=== PATIENT | female | born 1990 | race Caucasian/White ===

== ENCOUNTER 2020-06-15 22:44 | Inpatient (IN) | payer OTHER ==
[~2020-06-15] VITALS: Ht 172.7 cm; Wt 73.0 kg
[2020-06-15] MEDS ORDERED: METOPROLOL TART25 MG PO (23:57)
[2020-06-15] MEDS ORDERED: BUPRENORPHIN-N1 EACH SL (23:58)
[2020-06-15] MEDS ORDERED: TYLENOL325 MG PO (23:59)
[2020-06-16 01:39] LABS: HEMOGLOBIN 11.2 gm/dl (12.3-15.3); RED BLOOD COUNT 4.47 M/UL (4.00-5.10); WHITE BLOOD COUNT 16.9 K/UL (4.5-11.0)
[2020-06-16 03:50] LABS: BUN/CREATININE RATIO 11 (0-10)
[2020-06-16 11:05] LABS: HEMOGLOBIN 10.7 gm/dl (12.3-15.3); RED BLOOD COUNT 4.39 M/UL (4.00-5.10); WHITE BLOOD COUNT 13.3 K/UL (4.5-11.0)
[2020-06-16 11:24] LABS: BUN/CREATININE RATIO 16 (0-10)
[2020-06-16 20:05] LABS: BUN/CREATININE RATIO 16 (0-10)
[2020-06-17 05:50] LABS: HEMOGLOBIN 10.5 gm/dl (12.3-15.3); RED BLOOD COUNT 4.2 M/UL (4.00-5.10); WHITE BLOOD COUNT 16.4 K/UL (4.5-11.0)
[2020-06-17 06:11] LABS: BUN/CREATININE RATIO 16 (0-10)
[2020-06-18 03:54] LABS: HEMOGLOBIN 10.1 gm/dl (12.3-15.3); RED BLOOD COUNT 4.05 M/UL (4.00-5.10)
[2020-06-18 03:58] LABS: WHITE BLOOD COUNT 21.9 K/UL (4.5-11.0)
[2020-06-18 04:18] LABS: BUN/CREATININE RATIO 18 (0-10)
[2020-06-19 03:54] LABS: HEMOGLOBIN 9.5 gm/dl (12.3-15.3); RED BLOOD COUNT 3.79 M/UL (4.00-5.10)
[2020-06-19 04:22] LABS: WHITE BLOOD COUNT 14.6 K/UL (4.5-11.0)
[2020-06-19 04:33] LABS: BUN/CREATININE RATIO 25 (0-10)
[2020-06-20 04:41] LABS: HEMOGLOBIN 8.7 gm/dl (12.3-15.3)
[2020-06-20 04:48] LABS: RED BLOOD COUNT 3.38 M/UL (4.00-5.10)
[2020-06-20 05:04] LABS: BUN/CREATININE RATIO 23 (0-10)
--- NOTE | 2020-06-20 15:00 | NUR ---
DR. CONNOR AT BEDSIDE, PTS BROTHER, PACHECO GALICIA HERE. HE STATES HE WISHES TO TRANSFER HIS DECISION MAKING RESPONSIBILITES TO HER BOYFRIEND OF 10+ YEARS, CAROLINA GRANADOS. PACHECO GALICIA STATES HE DOES NOT FEEL COMFORTABLE MAKING THOSE DECISIONS. SEE DR. CONNOR CHARTING FOR FURTHER DETAILS.
[2020-06-21 03:51] LABS: HEMOGLOBIN 8.3 gm/dl (12.3-15.3); RED BLOOD COUNT 3.31 M/UL (4.00-5.10)
[2020-06-21 03:55] LABS: WHITE BLOOD COUNT 10.1 K/UL (4.5-11.0)
[2020-06-21 04:17] LABS: BUN/CREATININE RATIO 27 (0-10)
--- NOTE | 2020-06-21 10:46 | NUR ---
06/21/2020 AT 0821, NELY FROM [facility] CALLED TO GET A PATIENT UPDATE. NELY LEFT HER NUMBER IF FAMILY OR PATIENT STATUS WERE TO CHANGE.
[2020-06-22 08:38] LABS: HEMOGLOBIN 8.5 gm/dl (12.3-15.3); RED BLOOD COUNT 3.51 M/UL (4.00-5.10); WHITE BLOOD COUNT 8.2 K/UL (4.5-11.0)
[2020-06-22 08:54] LABS: BUN/CREATININE RATIO 27 (0-10)
--- NOTE | 2020-06-22 09:31 | NUR ---
CALLED [facility] 06/22/20 AT 0930. SPOKE WITH NELY WHO HAS BEEN FOLLOWING THE CASE. INFORMED NELY THAT FAMILY IS THINKING OF WITHDRAWAL OF CARE AND WOULD MAKE A DECISION IN A HOUR. NELY SAID SHE WOULD MAKE HER PHONE CALLS AND CALL ME BACK WITH MORE INFORMATION.
--- NOTE | 2020-06-22 09:40 | NUR ---
SPOKE WITH REAL FROM [facility] AT 0938 06/21/20. SHE OBTAINED INFORMATION AND STATED SHE HAD TO MAKE A PHONE CALLED AND WOULD CALL ME BACK WITH MORE INFORMATION. SPOKE WITH [place] FROM [facility] AT 0939 06/21/20. NELY WAS MAKING SURE I SPOKE WITH REAL AND THAT REAL WILL BE IN TOUCH WITH ME AGAIN.
--- NOTE | 2020-06-22 09:42 | NUR ---
Spoke to NICOLE Lorenz re: need for PICC line. MD in discussion with family about withdrawal of care.
--- NOTE | 2020-06-22 10:17 | NUR ---
REAL JOHNS CALLED BACK [phone] 06/22/20. REAL JOHNS STATED SHE WILL BE COMING DOWN FROM [facility] TO TALK WITH THE FAMILY. FAMILY SUPPORT WITH [facility] WILL ALSO BE COMING DOWN WELL TO SPEAK WITH THE FAMILY.
--- NOTE | 2020-06-22 12:06 | NUR ---
FAMILY SUPPORT PERSONAL FROM [facility] ARRIVED AT [phone] 06/22/20.
--- NOTE | 2020-06-22 12:19 | NUR ---
MORE PERSONAL FROM [facility] HAVE ARRIVED [phone] 06/22/20
--- NOTE | 2020-06-22 13:33 | NUR ---
family support nurses with [facility] took family back to have a talk about care and how he wants to prodece.
--- NOTE | 2020-06-22 13:59 | NUR ---
family support nurses spoke with family. boyfriend agreed he wanted to donate organs. zbigniew traore is the organ coorinate for [facility] and will be arrving shortly. 1400, 06/22/20
--- NOTE | 2020-06-22 16:27 | NUR ---
REAL FROM [facility] CALLED AND SAID SHE WAS ON HER WAY TO THE HOSPITAL. REAL IS THE ORGAN COORDINATOR. 1533 06/22/20
[2020-06-23 04:56] LABS: HEMOGLOBIN 7.9 gm/dl (12.3-15.3); WHITE BLOOD COUNT 6.3 K/UL (4.5-11.0)
[2020-06-23 04:57] LABS: RED BLOOD COUNT 3.14 M/UL (4.00-5.10)
[2020-06-23 05:16] LABS: BUN/CREATININE RATIO 25 (0-10)
[2020-06-23 17:11] LABS: HIV 1 AB Negative (Negative); HIV 1 RNA QUALITATIVE Negative (Negative); HIV 2 AB Negative (Negative); HIV SCREEN 4TH GENERATION WRFX Reactive (Non Reactive); INTERPRETATION: Negative (.)
--- NOTE | 2020-06-28 07:08 | NUR ---
PATIENTS BREATHING HAS BECOME MORE LABORED. CALLED CAROL[place] GRANADOS [phone] TWICE AT 0645. UNABLE TO REACH HIM AT THAT TIME.
== END 2020-06-29 06:00 | disposition expired | DRG 917 ==
LOC: CCU 22:44 → MED SURG 4 23:41 → CCU 23:45 → MED SURG 4 06-25 15:16
PROVIDERS: Family Medicine; Internal Medicine Infectious Disease; Internal Medicine Pulmonary Disease; ADMIT Internal Medicine
PROC: 0BH17EZ Insertion of Endotracheal Airway into Trachea, Via Natural or Artificial Opening (ICD-10-PCS; principal; 2020-06-16)
PROC: 5A1955Z Respiratory Ventilation, Greater than 96 Consecutive Hours (ICD-10-PCS; 2020-06-16)
DX: T65.91XA Toxic effect of unspecified substance, accidental (unintentional), initial encounter (principal); I21.A1 Myocardial infarction type 2; J69.0 Pneumonitis due to inhalation of food and vomit; J96.01 Acute respiratory failure with hypoxia; J15.0 Pneumonia due to Klebsiella pneumoniae; R65.20 Severe sepsis without septic shock; A41.02 Sepsis due to Methicillin resistant Staphylococcus aureus; E87.2 Acidosis; G93.1 Anoxic brain damage, not elsewhere classified; F11.20 Opioid dependence, uncomplicated; I42.9 Cardiomyopathy, unspecified; B20 Human immunodeficiency virus [HIV] disease; I44.2 Atrioventricular block, complete; Z66 Do not resuscitate; Z51.5 Encounter for palliative care; Z20.822 Contact with and (suspected) exposure to COVID-19; I27.20 Pulmonary hypertension, unspecified; R40.2430 Glasgow coma scale score 3-8, unspecified time; D64.9 Anemia, unspecified; D72.829 Elevated white blood cell count, unspecified; L89.326 Pressure-induced deep tissue damage of left buttock; I46.9 Cardiac arrest, cause unspecified; E11.9 Type 2 diabetes mellitus without complications; B19.20 Unspecified viral hepatitis C without hepatic coma; Z86.14 Personal history of Methicillin resistant Staphylococcus aureus infection; R94.31 Abnormal electrocardiogram [ECG] [EKG]; G40.909 Epilepsy, unspecified, not intractable, without status epilepticus; F19.10 Other psychoactive substance abuse, uncomplicated; Z95.2 Presence of prosthetic heart valve; Z83.3 Family history of diabetes mellitus; Z82.49 Family history of ischemic heart disease and other diseases of the circulatory system
CPT/HCPCS: 36415; 36600; 70450; 71045; 80048; 80053; 80202; 80307; 81001; 82550; 82553; 82803; 82962; 83605; 83615; 83690; 83735; 83880; 84100; 84484; 85025; 85027; 85610; 86140; 87040; 87070; 87077; 87186; 87205; 87389; 87635; 93005; 93308; 94002; 94003; 94760; 95819; C9113; J1335; J1650; J1940; J1953; J2060; J2250; J2270; J2543; J2765; J3370; J3475; J3480; J7030; J7040; J7050; J7070; P9047